=== PATIENT | male | born 1945 | race American Indian/Alaskan Native ===

== ENCOUNTER 2017-07-02 18:24 | Emergency (ER) | payer MEDICARE ==
--- NOTE | 2017-07-02 19:46 | Emergency Department Report ---
ED CPR HPI - General Chief Complaint: Cardiac Arrest/CPR Stated Complaint: CARDIAC ARREST Time Seen by Provider: 07/02/17 18:57 Source: EMS (PT FOUND DOWN AT 1537, 1647 CPR BEGAN BY EMS) Mode of arrival: Stretcher Limitations: Other - History of Present Illness Initial Comments: 72 YO MALE WITH H/O PROSTATE CANCER FOUND DOWN BY HIS FAMILY. PT HAD UNKNOWN DOWN TIME. EMS CALLED AT 1537 AND 1547 EMS ARRIVED AND BEGAN ACLS PROTOCOL. WHEN PT ARRIVED ,HE HAD ALREADY GOTTEN 2 EPINEPHRINE VIA ETT. HE HAD NO IV ACCESS. WE GAVE EPINEPHRINE VIA ETT UNTIL IV ACCESS . PT AND RHYTHM. PT HAD NOT RETRUN OF SPONTANEOUS RESPIRATIONS OR HEART BEAT. Complaint: found unresponsive Place: home Bystander CPR Performed: No Shock Advised: No Initial Findings in the Field: unresponsive Associated Injuries: No ED Review of Systems ROS: Stated complaint: CARDIAC ARREST Other details as noted in HPI ED Past Medical Hx - Past Medical History Previous Medical History?: Yes Additional medical history: PROSTATE CANCER ED Physical Exam - General Limitations: Altered Mental Status (UNRESPONSIVE), Other - Head Head exam: Present: atraumatic, normocephalic - Eye Eye exam: Present: other (FIXED AND DILATED). Absent: PERRL - ENT ENT exam: Present: other (INTUBATED WITH ETT 7.0) - Neck Neck exam: Present: normal inspection - Cardiovascular Cardiovascular Exam: Present: other (ASYSTOLE) - GI/Abdominal GI/Abdominal exam: Present: soft - Extremities Exam Extremities exam: Present: other (STIFF) Critical care attestation.: If time is entered above; I have spent that time in minutes in the direct care of this critically ill patient, excluding procedure time. ED Disposition Clinical Impression: Cardiac arrest, Respiratory arrest Disposition: DC-20 Is pt being admited?: No Does the pt Need Aspirin: No Condition: Stable Referrals: DENISHA DICKSON MD [Staff Physician] - 3-5 Days Time of Disposition: 19:51
== END 2017-07-03 01:11 ==
LOC: ED 18:24 → EDBD 18:24 → ED 07-03 01:11
DX: I46.9 Cardiac arrest, cause unspecified (principal)
CPT/HCPCS: 99285